=== PATIENT | female | born 1940 | race Caucasian/White ===

== ENCOUNTER 2017-10-11 19:26 | Emergency (ER) | payer MEDICARE ==
--- NOTE | 2017-10-11 19:39 | EDM.PDOC ---
ED HPI GENERAL MEDICAL PROBLEM - General Chief Complaint: Neuro Symptoms/Deficits Stated Complaint: SLERING WORDS/POSSIBLE STROKE Time Seen by Provider: 10/11/17 19:26 - History of Present Illness INITIAL COMMENTS - FREE TEXT/NARRATIVE: 77-year-old female presents emergency room with strokelike symptoms. About 6:30 this evening patient was just finished washing dishes and she became very unsteady on her feet and week she also had difficulty with her speech. Shortly before 7:30 she arrived in our emergency department where family and the patient had already noticed some improvement she had no detectable weakness but had a obvious aphasia. She was rushed to CT when she came back she showed continued improvement stroke score was obtained and showed a score of 21 point taken off for mild to moderate a fascia and one point taken off for mild to moderate dysarthria the patient had an otherwise normal neurologic examination I can stand her up to cerebellar testing without difficulty. Patient's case was discussed with , on-call neurologist at [facility] in [place] who recommend transferring for stroke evaluation to the hospitalist service he recommended against thrombolytic therapy at this time. She has a known history of cardiovascular disease she had an MN in 1995 sounds like she had a recent follow-up with her orientor without concerns. - Related Data Allergies Allergy/AdvReac Type Severity Reaction Status Date / Time levofloxacin [From Levaquin] Allergy Hives Verified 10/11/17 19:32 Home Meds: Home Meds Ascorbate Calcium [Vitamin C] 500 mg PO DAILY 10/11/17 [History] Aspirin [Ecotrin] 325 mg PO DAILY 10/11/17 [History] Calcium Polycarbophil [Fibercon] 1,250 mg PO DAILY 10/11/17 [History] Coq10. 200 mg PO DAILY 10/11/17 [History] Cranberry. 4,200 mg PO DAILY 10/11/17 [History] DULoxetine [Cymbalta] 30 mg PO DAILY 10/11/17 [History] Flaxseed Oil 1,000 mg PO DAILY 10/11/17 [History] Lisinopril/Hydrochlorothiazide [Lisinopril-Hctz 20-12.5 mg Tab] 1 tab PO DAILY 10/11/17 [History] Metoprolol Tartrate [Lopressor] 50 mg PO BID 10/11/17 [History] Multivitamin with Minerals [Multiple Vitamin] 1 tab PO DAILY 10/11/17 [History] Vitamin B Complex. 1 tab PO DAILY 10/11/17 [History] Vitamin E (Dl,Tocopheryl Acet) [Vitamin E] 400 unit PO DAILY 10/11/17 [History] atorvaSTATin [Lipitor] 20 mg PO BEDTIME 10/11/17 [History] Past Medical History Cardiovascular History: Reports: Hypertension Respiratory History: Reports: COPD ED ROS GENERAL - Review of Systems Review Of Systems: See Below Constitutional: Reports: No Symptoms HEENT: Reports: No Symptoms Respiratory: Reports: No Symptoms Cardiovascular: Reports: No Symptoms GI/Abdominal: Reports: No Symptoms : Reports: No Symptoms Musculoskeletal: Reports: No Symptoms Skin: Reports: No Symptoms Neurological: Reports: Dizziness, Trouble Speaking, Difficulty Walking, Gait Disturbance. Denies: Headache Psychiatric: Reports: No Symptoms Hematologic/Lymphatic: Reports: No Symptoms Immunologic: Reports: No Symptoms ED EXAM, NEURO - Physical Exam Exam: See Below Exam Limited By: No Limitations General Appearance: Alert, No Apparent Distress, Other (At the time of her initial dilation patients has a obvious aphasia doesn't have any apparent extremity muscle weakness facial musculature it's really hard to call a deficit at this point) Eye Exam: Bilateral Eye: EOMI, Normal Inspection, PERRL Ears: Normal External Exam, Normal Canal, Hearing Grossly Normal, Normal TMs Nose: Normal Inspection, Normal Mucosa, No Blood Throat/Mouth: Normal Inspection, Normal Lips, Normal Teeth, Normal Gums, Normal Oropharynx, Normal Voice, No Airway Compromise Head Exam: Atraumatic, Normocephalic Neck: Normal Inspection, Supple, Non-Tender, Full Range of Motion. No: Lymphadenopathy (L), Lymphadenopathy (R) Respiratory/Chest: No Respiratory Distress, Lungs Clear, Normal Breath Sounds Cardiovascular: Regular Rate, Rhythm, No Edema, No Murmur GI/Abdominal: Normal Bowel Sounds, Soft, Non-Tender Neurological: Other (Her last exam completely done after the patient returned from CT. She continues to show any improvement she has no obvious discernible muscle weakness in any of the 4 extremities gambling monitor strength is equal and appropriate rheostat assembler all muscle groups the upper extremities recall appropriate patient is ambulatory with caution she is a probable to do cerebellar testing without limitation or difficulty she still a mild aphasia and dysarthria.) Back Exam: Normal Inspection. No: CVA Tenderness (L), CVA Tenderness (R) Extremities: Normal Inspection, No Pedal Edema Psychiatric: Normal Affect, Normal Mood Skin Exam: Warm, Dry, Intact EKG INTERPRETATION Rhythm: Other (Sinus bradycardia) Rate (Beats/Min): [address] [place]: Normal P-Wave: Present QRS: Normal ST-T: Normal QT: Normal Comparison: NA - No Prior EKG (Sinus bradycardia no evidence of ischemia or other abnormalities noted) Course - Vital Signs Last Recorded V/S: Last Vital Signs Temp 36.4 C 10/11/17 19:32 Pulse 66 10/11/17 19:32 Resp 15 10/11/17 19:32 BP 151/53 H 10/11/17 19:32 Pulse Ox 98 10/11/17 19:32 - Orders/Labs/Meds Orders: Active Orders 24 hr Category Date Time Status EKG Documentation Completion [RC] STAT Care 10/11/17 19:37 Active Chest 1V Frontal [CR] Stat Exams 10/11/17 19:36 Taken Head wo Cont [CT] Stat Exams 10/11/17 19:37 Taken C-REACTIVE PROTEIN [CHEM] Stat Lab 10/11/17 19:34 Received COMPREHENSIVE METABOLIC PN,CMP [CHEM] Stat Lab 10/11/17 19:34 Received SEDIMENTATION RATE AUTO [HEME] Stat Lab 10/11/17 19:34 Received Labs: Laboratory Tests 10/11/17 10/11/17 10/11/17 Range/Units 19:33 19:34 19:34 WBC 6.11 (3.98-10.04) K/mm3 RBC 4.39 (3.98-5.22) M/mm3 Hgb 14.0 (11.2-15.7) gm/L Hct 42.4 (34.1-44.9) % MCV 96.6 H (79.4-94.8) fl MCH 31.9 (25.6-32.2) pg MCHC 33.0 (32.2-35.5) g/dl RDW Std Deviation 48.6 H (36.4-46.3) fL Plt Count 175 L (182-369) K/mm3 MPV 9.7 (9.4-12.3) fl Neutrophils % (Manual) 43 (40-60) % Band Neutrophils % 0 (0-10) % Lymphocytes % (Manual) 39 (20-40) % Atypical Lymphs % 1 % Monocytes % (Manual) 10 (2-10) % Eosinophils % (Manual) 6 H (0.7-5.8) % Basophils % (Manual) 1 (0.1-1.2) Platelet Estimate Adequate RBC Morph Comment Normal PT 10.0 (8.0-13.0) SECONDS INR 0.94 APTT 26 (22-36) SECONDS POC Glucose 105 (83-110) mg/dL Troponin I (0.00-0.056) ng/mL 10/11/17 Range/Units 19:34 WBC (3.98-10.04) K/mm3 RBC (3.98-5.22) M/mm3 Hgb (11.2-15.7) gm/L Hct (34.1-44.9) % MCV (79.4-94.8) fl MCH (25.6-32.2) pg MCHC (32.2-35.5) g/dl RDW Std Deviation (36.4-46.3) fL Plt Count (182-369) K/mm3 MPV (9.4-12.3) fl Neutrophils % (Manual) (40-60) % Band Neutrophils % (0-10) % Lymphocytes % (Manual) (20-40) % Atypical Lymphs % % Monocytes % (Manual) (2-10) % Eosinophils % (Manual) (0.7-5.8) % Basophils % (Manual) (0.1-1.2) Platelet Estimate RBC Morph Comment PT (8.0-13.0) SECONDS INR APTT (22-36) SECONDS POC Glucose (83-110) mg/dL Troponin I < 0.017 (0.00-0.056) ng/mL Meds: Medications Discontinued Medications Generic Name Dose Route Start Last Admin Trade Name Freq PRN Reason Stop Dose Admin Aspirin 324 mg 10/11/17 21:23 10/11/17 21:34 Aspirin PO 10/11/17 21:24 324 mg ONETIME ONE Administration - Re-Assessments/Exams Free Text/Narrative Re-Assessment/Exam: 10/11/17 21:41 Patient presents with what appears to be improving CVA symptoms. She started out with some muscle weakness in hip and even ambulation and a marked aphasia and dysarthria she had significant improvement by the time she got to the emergency room and continued to show significant improvement at this time she has mild dysarthria and mild ectasia total stroke score is 2. Patient's case was initially discussed with Dr. Caldera neurologist at [facility] at that point given the improvement that she had his recommendations was no thrombolytics. Did discuss situation with Dr. Parson hospitalist who except the patient's for admission we are working on fixed wing transportation at this time. Departure - Departure Time of Disposition: 21:50 Disposition: DC/Tfer to [facility] 02 Clinical Impression: CVA (cerebral vascular accident) - Discharge Information Referrals: Princess Tobias NP [Primary Care Provider] - Forms: ED Department Discharge - My Orders Last 24 Hours: My Active Orders 10/11/17 19:34 C-REACTIVE PROTEIN [CHEM] Stat COMPREHENSIVE METABOLIC PN,CMP [CHEM] Stat SEDIMENTATION RATE AUTO [HEME] Stat 10/11/17 19:36 Chest 1V Frontal [CR] Stat 10/11/17 19:37 EKG Documentation Completion [RC] STAT Head wo Cont [CT] Stat - Assessment/Plan Last 24 Hours: My Active Orders 10/11/17 19:34 C-REACTIVE PROTEIN [CHEM] Stat COMPREHENSIVE METABOLIC PN,CMP [CHEM] Stat SEDIMENTATION RATE AUTO [HEME] Stat 10/11/17 19:36 Chest 1V Frontal [CR] Stat 10/11/17 19:37 EKG Documentation Completion [RC] STAT Head wo Cont [CT] Stat
[2017-10-11] MEDS ORDERED: Aspirin 81 MG Tab.Chew PO ONE (21:23)
--- NOTE | 2017-10-12 09:39 | CR ---
Chest: Frontal view of the chest was obtained. Comparison: No prior chest x-ray. Heart is slightly enlarged. Tortuous thoracic aorta is seen with atherosclerotic calcification within the aortic knob. Lungs are clear. Bony structures appear within normal limits for the patient's age. Impression: 1. Incidental findings. Nothing acute is identified. Diagnostic code #2
--- NOTE | 2017-10-12 09:39 | CT ---
Head CT Technique: Multiple axial sections through the brain were obtained. Intravenous contrast was not utilized. Comparison: No previous intracranial imaging. Findings: Ventricles along with basal cisterns and sulci over the convexities are mildly prominent. Mild areas of diminished density are noted within the basal ganglia and within the periventricular white matter which is felt compatible with small vessel ischemic demyelination change. Mild atherosclerotic calcification is noted within the carotid siphon. Incidental hyperostosis interna frontalis is noted. No acute calvarial abnormality is appreciated. Impression: 1. Mild senescent change as noted above. 2. No acute intracranial abnormality is identified. Diagnostic code #2 Agree with preliminary report issued by [facility] ([facility] preliminary report dictated on 10/11/17, 9:09 PM)
== END 2017-10-11 22:32 ==
LOC: JD.ED 19:26
DX: I63.9 Cerebral infarction, unspecified (principal); I10 Essential (primary) hypertension; J44.9 Chronic obstructive pulmonary disease, unspecified; Z79.899 Other long term (current) drug therapy; Z88.1 Allergy status to other antibiotic agents; Z79.82 Long term (current) use of aspirin
CPT/HCPCS: 36415; 70450; 71045; 80053; 81001; 82962; 84484; 85025; 85610; 85652; 85730; 86140; 93005; 99285; A9270; 93010; 99284-25

== ENCOUNTER 2020-11-18 12:10 | Day surgery (SDC) | payer MEDICARE ==
[2020-11-18] MEDS: Polymyxin B/Trimethoprim 10 ML Bottle EYELF SCH ×4 (12:40→14:33)
[2020-11-18] MEDS: Brimonidine 0.2% Ophth Soln 5 ML Bottle EYELF SCH ×4 (12:45→14:33)
[2020-11-18] MEDS: Phenylephrine 2.5% Ophth Soln 2 ML Bot EYELF SCH ×6 (12:49→14:09)
[2020-11-18] MEDS: Tropicamide 1% Ophth Soln 15 ML Bottle EYELF SCH ×4 (12:54→13:38)
--- NOTE | 2020-11-18 13:07 | PCM.PREANE ---
Preanesthetic Assessment - Procedure Proposed Procedure: Left Eye Cataract Extraction with IOL - Anesthesia/Transfusion/Family Hx Anesthesia History: Prior Anesthesia Without Reaction Family History of Anesthesia Reaction: No - Review of Systems General: No Symptoms Pulmonary: Other (COPD, Smoker 10 cigaretes per day. ) Cardiovascular: Other (HTN, Atrial fibrilation, MN 94 no problems since that time. Denies cardiac stents/plasty. ) Gastrointestinal: No Symptoms Neurological: Numbness (Hands turn purple and are sensitive to cold. ), Trouble Speaking (Stroke in 2018, "difficulty finding words sometimes" no other residule symptoms. ) Other: Reports: None, Depression - Physical Assessment NPO Status Date: 11/18/20 NPO Status Time: 05:00 Height: 1.52 m Weight: 81.647 kg ASA Class: 3 Mental Status: Alert & Oriented x3 Airway Class: Mallampati = 2 Dentition: Reports: Dentures Thyro-Mental Finger Breadths: 3 Mouth Opening Finger Breadths: 3 ROM/Head Extension: Full Lungs: Clear to Auscultation, Normal Respiratory Effort, Decreased Breath Sounds Cardiovascular: Regular Rate, Regular Rhythm, Bradycardia - Allergies Allergies/Adverse Reactions: Allergies Allergy/AdvReac Type Severity Reaction Status Date / Time levofloxacin [From Levaquin] Allergy Hives Verified 11/17/20 15:52 - Anesthesia Plan Beta Rufino: Metoprolol Med Last Dose Date: 11/17/20 Med Last Dose Time: 12:00 - Acknowledgements Anesthesia Type Planned: MAC Pt an Appropriate Candidate for the Planned Anesthesia: Yes Alternatives and Risks of Anesthesia Discussed w Pt/Guardian: Yes Pt/Guardian Understands and Agrees with Anesthesia Plan: Yes PreAnesthesia Questionnaire Cardiovascular History: Reports: Hypertension Respiratory History: Reports: COPD - HOME MEDS Home Medications: Home Meds Ascorbate Calcium [Vitamin C] 500 mg PO DAILY 10/11/17 [History] Aspirin [Ecotrin] 325 mg PO DAILY 10/11/17 [History] Coq10. 200 mg PO DAILY 10/11/17 [History] Cranberry. 4,200 mg PO DAILY 10/11/17 [History] DULoxetine [Cymbalta] 30 mg PO DAILY 10/11/17 [History] Flaxseed Oil 1,000 mg PO DAILY 10/11/17 [History] Lisinopril/Hydrochlorothiazide [Lisinopril-Hctz 20-12.5 mg Tab] 1 tab PO DAILY 10/11/17 [History] Metoprolol Tartrate [Lopressor] 50 mg PO BID 10/11/17 [History] Multivitamin with Minerals [Multiple Vitamin] 1 tab PO DAILY 10/11/17 [History] Vitamin B Complex. 1 tab PO DAILY 10/11/17 [History] Vitamin E (Dl,Tocopheryl Acet) [Vitamin E] 400 unit PO DAILY 10/11/17 [History] atorvaSTATin [Lipitor] 20 mg PO BEDTIME 10/11/17 [History] calcium polycarbophiL [Fibercon] 1,250 mg PO DAILY 10/11/17 [History] - CURRENT (IN HOUSE) MEDS Current Meds: Current Medications Brimonidine Tartrate (Brimonidine 0.2% Ophth Soln 5 Ml Bottle) 0 ml EYELF ASDIRECTED KENNEDY Stop: 11/18/20 18:00 Last Admin: 11/18/20 12:45 Dose: 1 drop Documented by: Cefuroxime Sodium (Cefuroxime 10 Mg/Ml Syringe) 0 mg EYELF ASDIRECTED KENNEDY Stop: 11/18/20 18:00 Lidocaine HCl (Lidocaine 1% Pf 2 Ml Sdv) 0 ml INJECT ASDIRECTED KENNEDY Stop: 11/18/20 18:00 Phenylephrine HCl (Phenylephrine 2.5% Ophth Soln 2 Ml Bot) 0 ml EYELF ASDIRECTED KENNEDY Stop: 11/18/20 18:00 Last Admin: 11/18/20 13:00 Dose: 1 drop Documented by: Pilocarpine HCl (Pilocarpine 4% Ophth Soln 15 Ml Bot) 0 ml EYELF ASDIRECTED KENNEDY Stop: 11/18/20 18:00 Polymyxin/Trimethoprim Sulfate (Polymyxin B/Trimethoprim 10 Ml Bottle) 0 ml EYELF ASDIRECTED KENNEDY Stop: 11/18/20 18:00 Last Admin: 11/18/20 12:40 Dose: 1 drop Documented by: Tetracaine HCl (Tetracaine Hcl/Pf 0.5% 4 Ml Bottle) 0 ml EYEBOTH ASDIRECTED KENNEDY Stop: 11/18/20 18:00 Tropicamide (Tropicamide 1% Ophth Soln 15 Ml Bottle) 0 ml EYELF ASDIRECTED KENNEDY Stop: 11/18/20 18:00 Last Admin: 11/18/20 12:54 Dose: 1 drop Documented by:
[2020-11-18] MEDS: Tetracaine HCl/PF 0.5% 4 ML Bottle EYEBOTH SCH ×5 (13:47→14:24)
[2020-11-18] MEDS: Lidocaine 1% PF 2 ML SDV INJECT SCH ×2 (13:50→14:24)
[2020-11-18] MEDS: Cefuroxime 10 MG/ML SYRINGE EYELF SCH ×2 (13:51→14:32)
[2020-11-18] MEDS: Pilocarpine 4% Ophth Soln 15 ML Bot EYELF SCH ×2 (13:51→14:33)
--- NOTE | 2020-11-18 14:41 | PCM48HPAN ---
Post Anesthesia Note - EVALUATION WITHIN 48HRS OF ANESTHETIC Vital Signs in Normal Range: Yes Patient Participated in Evaluation: Yes Respiratory Function Stable: Yes Airway Patent: Yes Cardiovascular Function Stable: Yes Hydration Status Stable: Yes Pain Control Satisfactory: Yes Nausea and Vomiting Control Satisfactory: Yes Mental Status Recovered: Yes Vital Signs: Last Vital Signs Temp 35.9 C L 11/18/20 12:25 Pulse 50 L 11/18/20 12:25 Resp 20 11/18/20 12:25 BP 152/72 H 11/18/20 12:25 Pulse Ox 96 11/18/20 12:25
== END 2020-11-18 14:48 | disposition home or self-care (01) ==
LOC: JD.SDS 12:10
PROVIDERS: ATTEND Ophthalmology
DX: H25.813 Combined forms of age-related cataract, bilateral (principal); I10 Essential (primary) hypertension; E78.00 Pure hypercholesterolemia, unspecified; F17.210 Nicotine dependence, cigarettes, uncomplicated; I25.2 Old myocardial infarction; I48.91 Unspecified atrial fibrillation; J44.9 Chronic obstructive pulmonary disease, unspecified; Z88.8 Allergy status to other drugs, medicaments and biological substances; Z86.73 Personal history of transient ischemic attack (TIA), and cerebral infarction without residual deficits; Z98.890 Other specified postprocedural states; Z79.82 Long term (current) use of aspirin; Z79.899 Other long term (current) drug therapy
CPT/HCPCS: 66984; C1780; J0697

== ENCOUNTER 2020-12-16 08:01 | Day surgery (SDC) | payer MEDICARE ==
[~2020-12-16 08:01] MED LIST: Cefuroxime 10 MG/ML SYRINGE EYERT SCH; Lidocaine 1% PF 2 ML SDV INJECT SCH; Pilocarpine 4% Ophth Soln 15 ML Bot EYERT SCH
--- NOTE | 2020-12-16 08:27 | PCM.PREANE ---
Preanesthetic Assessment - Anesthesia/Transfusion/Family Hx Anesthesia History: Prior Anesthesia Without Reaction Family History of Anesthesia Reaction: No Transfusion History: No Prior Transfusion(s) - Review of Systems General: No Symptoms Pulmonary: No Symptoms, Other (current smoker) Cardiovascular: Other (afib on Eliquis, HTN) Gastrointestinal: No Symptoms Neurological: Other (hx of stroke, affected her speech) Other: Reports: Depression - Physical Assessment NPO Status Date: 12/15/20 NPO Status Time: 23:00 Height: 1.52 m Weight: 81.647 kg ASA Class: 3 Mental Status: Alert & Oriented x3 Airway Class: Mallampati = 2 Dentition: Reports: Dentures Thyro-Mental Finger Breadths: 3 Mouth Opening Finger Breadths: 3 ROM/Head Extension: Full Lungs: Clear to Auscultation, Normal Respiratory Effort Cardiovascular: Regular Rate - Allergies Allergies/Adverse Reactions: Allergies Allergy/AdvReac Type Severity Reaction Status Date / Time levofloxacin [From Levaquin] Allergy Hives Verified 12/12/20 10:32 - Blood Blood Available: No Product(s) Available: None - Anesthesia Plan Beta Rufino: Metoprolol Med Last Dose Date: 12/15/20 Med Last Dose Time: 12:00 - Acknowledgements Anesthesia Type Planned: MAC Pt an Appropriate Candidate for the Planned Anesthesia: Yes Alternatives and Risks of Anesthesia Discussed w Pt/Guardian: Yes Pt/Guardian Understands and Agrees with Anesthesia Plan: Yes PreAnesthesia Questionnaire Cardiovascular History: Reports: Hypertension Respiratory History: Reports: COPD - HOME MEDS Home Medications: Home Meds Ascorbate Calcium [Vitamin C] 500 mg PO DAILY 10/11/17 [History] Coq10. 200 mg PO DAILY 10/11/17 [History] Cranberry. 4,200 mg PO DAILY 10/11/17 [History] DULoxetine [Cymbalta] 60 mg PO DAILY 10/11/17 [History] Flaxseed Oil 1,000 mg PO DAILY 10/11/17 [History] Lisinopril/Hydrochlorothiazide [Lisinopril-Hctz 20-12.5 mg Tab] 1 tab PO DAILY 10/11/17 [History] Metoprolol Tartrate [Lopressor] 50 mg PO BID 10/11/17 [History] Multivitamin with Minerals [Multiple Vitamin] 1 tab PO DAILY 10/11/17 [History] Vitamin B Complex. 1 tab PO DAILY 10/11/17 [History] Vitamin E (Dl,Tocopheryl Acet) [Vitamin E] 400 unit PO DAILY 10/11/17 [History] calcium polycarbophiL [Fibercon] 1,250 mg PO DAILY 10/11/17 [History] Allopurinol [Zyloprim] 300 mg PO DAILY 12/12/20 [History] Apixaban [Eliquis] 5 mg PO DAILY 12/12/20 [History] Aspirin 81 mg PO DAILY 12/12/20 [History] Sycamore-3/DHA/Epa/Fish Oil [Sycamore 3 500 Softgel] 1 cap PO DAILY 12/12/20 [History] atorvaSTATin [Lipitor] 40 mg PO DAILY 12/12/20 [History] - CURRENT (IN HOUSE) MEDS Current Meds: Current Medications Brimonidine Tartrate (Brimonidine 0.2% Ophth Soln 5 Ml Bottle) 0 ml EYERT ASDIRECTED KENNEDY Stop: 12/16/20 18:00 Cefuroxime Sodium (Cefuroxime 10 Mg/Ml Syringe) 0 mg EYERT ASDIRECTED KENNEDY Stop: 12/16/20 18:00 Lidocaine HCl (Lidocaine 1% Pf 2 Ml Sdv) 0 ml INJECT ASDIRECTED KENNEDY Stop: 12/16/20 18:00 Phenylephrine HCl (Phenylephrine 2.5% Ophth Soln 2 Ml Bot) 0 ml EYERT ASDIRECTED KENNEDY Stop: 12/16/20 18:00 Pilocarpine HCl (Pilocarpine 4% Ophth Soln 15 Ml Bot) 0 ml EYERT ASDIRECTED KENNEDY Stop: 12/16/20 18:00 Polymyxin/Trimethoprim Sulfate (Polymyxin B/Trimethoprim 10 Ml Bottle) 0 ml EYERT ASDIRECTED KENNEDY Stop: 12/16/20 18:00 Tetracaine HCl (Tetracaine Hcl/Pf 0.5% 4 Ml Bottle) 0 ml EYEBOTH ASDIRECTED KENNEDY Stop: 12/16/20 18:00 Tropicamide (Tropicamide 1% Ophth Soln 15 Ml Bottle) 0 ml EYERT ASDIRECTED KENNEDY Stop: 12/16/20 18:00
[2020-12-16] MEDS: Polymyxin B/Trimethoprim 10 ML Bottle EYERT SCH ×3 (08:51→10:02)
[2020-12-16] MEDS: Brimonidine 0.2% Ophth Soln 5 ML Bottle EYERT SCH ×3 (08:55→10:02)
[2020-12-16] MEDS: Phenylephrine 2.5% Ophth Soln 2 ML Bot EYERT SCH ×5 (08:58→09:45)
[2020-12-16] MEDS: Tropicamide 1% Ophth Soln 15 ML Bottle EYERT SCH ×4 (09:01→09:28)
[2020-12-16] MEDS: Tetracaine HCl/PF 0.5% 4 ML Bottle EYEBOTH SCH ×2 (09:35→09:52)
--- NOTE | 2020-12-16 10:04 | PCM48HPAN ---
Post Anesthesia Note - EVALUATION WITHIN 48HRS OF ANESTHETIC Vital Signs in Normal Range: Yes Patient Participated in Evaluation: Yes Respiratory Function Stable: Yes Airway Patent: Yes Cardiovascular Function Stable: Yes Hydration Status Stable: Yes Pain Control Satisfactory: Yes Nausea and Vomiting Control Satisfactory: Yes Mental Status Recovered: Yes
== END 2020-12-16 10:16 | disposition home or self-care (01) ==
LOC: JD.SDS 08:01
PROVIDERS: ATTEND Ophthalmology
DX: H25.811 Combined forms of age-related cataract, right eye (principal); H43.813 Vitreous degeneration, bilateral; H02.831 Dermatochalasis of right upper eyelid; H02.834 Dermatochalasis of left upper eyelid; H52.31 Anisometropia; E78.00 Pure hypercholesterolemia, unspecified; I10 Essential (primary) hypertension; F17.200 Nicotine dependence, unspecified, uncomplicated; Z86.73 Personal history of transient ischemic attack (TIA), and cerebral infarction without residual deficits; Z98.890 Other specified postprocedural states; Z79.899 Other long term (current) drug therapy; Z88.8 Allergy status to other drugs, medicaments and biological substances; Z95.1 Presence of aortocoronary bypass graft
CPT/HCPCS: 66984; J0697; V2632